=== PATIENT | male | born 1975 | race Caucasian/White ===

== ENCOUNTER 2020-10-20 17:43 | Emergency (ER) | payer OTHER | END 2020-10-20 19:47 | disposition home or self-care (01) | LOC: FER 17:43 | DX: S93.602A Unspecified sprain of left foot, initial encounter (principal); I10 Essential (primary) hypertension; F17.220 Nicotine dependence, chewing tobacco, uncomplicated; Z79.899 Other long term (current) drug therapy; X50.1XXA Overexertion from prolonged static or awkward postures, initial encounter | CPT/HCPCS: 73630; J1885 ==